=== PATIENT | female | born 1950 | race Caucasian/White ===

== ENCOUNTER → 2023-12-01 14:25 | Outpatient (REF) | payer MEDICARE, OTHER, SELFPAY | LOC: WDC 14:25 | PROVIDERS: ATTENDING PHYSICIAN Obstetrics & Gynecology Gynecology; FAMILY PHYSICIAN Internal Medicine | DX: Z12.31 Encounter for screening mammogram for malignant neoplasm of breast (principal) | CPT/HCPCS: 77063; 77067 ==

== ENCOUNTER → 2024-03-07 14:39 | Outpatient (REF) | payer MEDICARE, OTHER, SELFPAY | LOC: WDC 14:39 | PROVIDERS: ATTENDING PHYSICIAN Obstetrics & Gynecology Gynecology; FAMILY PHYSICIAN Internal Medicine | DX: R92.2 Inconclusive mammogram (principal) | CPT/HCPCS: 76641 ==

== ENCOUNTER → 2024-12-01 13:20 | Outpatient (REF) | payer MEDICARE, OTHER, SELFPAY | LOC: WDC 13:20 | PROVIDERS: ATTENDING PHYSICIAN Internal Medicine | DX: Z12.31 Encounter for screening mammogram for malignant neoplasm of breast (principal) | CPT/HCPCS: 77063; 77067 ==

== ENCOUNTER → 2025-01-26 15:01 | Outpatient (REF) | payer MEDICARE, OTHER, SELFPAY | LOC: RAD 15:01 | PROVIDERS: ATTENDING PHYSICIAN Internal Medicine Rheumatology; FAMILY PHYSICIAN Internal Medicine | DX: M19.90 Unspecified osteoarthritis, unspecified site (principal) | CPT/HCPCS: 73110; 73130 ==

== ENCOUNTER → 2025-04-26 13:46 | Outpatient (REF) | payer MEDICARE, OTHER, SELFPAY | LOC: RAD 13:46 | PROVIDERS: ATTENDING PHYSICIAN Internal Medicine Rheumatology; FAMILY PHYSICIAN Internal Medicine | DX: M81.0 Age-related osteoporosis without current pathological fracture (principal) | CPT/HCPCS: 77080 ==